=== PATIENT | male | born 1950 | race Caucasian/White ===

== ENCOUNTER 2022-03-18 10:15 | Inpatient (IN) | payer MEDICARE, OTHER ==
[~2022-03-18] VITALS: Ht 172.7 cm; Wt 81.6 kg
--- NOTE | 2022-03-18 10:51 | NUR ---
PT IS IN ROOM #2A. DR LEE EVALUATED THE PT.
[2022-03-18] MEDS ORDERED: HYDR12.55 PO (10:57)
[2022-03-18] MEDS ORDERED: ATOR80TA PO (10:57)
[2022-03-18] MEDS ORDERED: QUET25TA PO (10:57)
[2022-03-18] MEDS ORDERED: VITAMIN D PO (10:57)
[2022-03-18] MEDS ORDERED: ACET-2605 PO ×2 (10:57)
[2022-03-18] MEDS ORDERED: [UNRECOGNIZED DRUG - CODE] PO (10:57)
[2022-03-18] MEDS ORDERED: MELA5TAB PO (10:57)
[2022-03-18] MEDS ORDERED: LORA10TA7 PO (10:57)
[2022-03-18] MEDS ORDERED: POLY17PO4 PO (10:57)
[2022-03-18] MEDS ORDERED: ASPI81TA31 PO (10:57)
[2022-03-18] MEDS ORDERED: ASCO500C18 PO (10:57)
[2022-03-18 10:59] LABS: HEMATOCRIT 43.9 % (36.7-47.1); MEAN CORPUSCULAR HEMOGLOBIN 30.9 uug (23.8-33.4); PLATELET COUNT (AUTO) 361 K/uL (152-348)
[2022-03-18] MEDS ORDERED: ACET-2154 PO (11:03)
[2022-03-18] MEDS ORDERED: LISI20TA30 PO (11:03)
[2022-03-18] MEDS ORDERED: SENN-261 PO (11:03)
[2022-03-18] MEDS ORDERED: MAGN400O6 PO (11:03)
[2022-03-18] MEDS ORDERED: FLEET ENEMA PR (11:03)
[2022-03-18 11:15] LABS: ALANINE AMINOTRANSFERASE 44 U/L (16-63); ALKALINE PHOSPHATASE 136 U/L (50-136); ASPARTATE AMINOTRANSFERASE 27 U/L (15-37); BILIRUBIN,DIRECT 0.1 mg/dL (0.0-0.2); BILIRUBIN,TOTAL 0.5 mg/dL (0.2-1.0); CARBON DIOXIDE 25 mmol/L (21-32); CHLORIDE 103 mmol/L (98-107); GLUCOSE 101 mg/dL (74-106); POTASSIUM 4.1 mmol/L (3.5-5.1); TOTAL PROTEIN, SERUM 8.2 g/dL (6.4-8.2); UREA NITROGEN, BLOOD 18 mg/dL (7-18)
[2022-03-18 11:17] LABS: ACETAMINOPHEN < 2.0 ug/mL (10-30); ETHANOL < 3 MG/DL (0-0)
[2022-03-18 11:40] LABS: *BILIRUBIN,URIN NEGATIVE (NEGATIVE); *CLARITY,URINE CLEAR (CLEAR); *COLOR,URINE YELLOW (YELLOW); *KETONES,URINE NEGATIVE (NEGATIVE); *UROBILINOGEN,URINE 0.2 E.U./dl (NORMAL); LEUKOCYTE ESTERASE ,URINE NEGATIVE (NEGATIVE); NITRITE, URINE NEGATIVE (NEGATIVE); PH,URINE 5.5 (5.0-8.0); UGLUCOSE NEGATIVE (NEGATIVE)
[2022-03-18 11:44] LABS: *BLOOD, URINE TRACE (NEGATIVE)
[2022-03-18 11:53] LABS: *AMPHETAMINE, URINE NEGATIVE (NEGATIVE); *CANNABINOID, URINE NEGATIVE (NEGATIVE); *COCCAINE, URINE NEGATIVE (NEGATIVE); *OPIATE, URINE NEGATIVE (NEGATIVE); *PHENCYCLIDINE SCREEN,URINE NEGATIVE (NEGATIVE)
[2022-03-18 11:57] LABS: BACTERIA,URINE FEW /HPF (NONE SEEN); RBC,URINE 0-3 /HPF (0-3); SQUAMOUS EPITHELIAL CELL,UR FEW /HPF (NONE SEEN); WBC,URINE 0-3 /HPF (0-3)
--- NOTE | 2022-03-18 13:26 | NUR ---
PT WAS EVALUATED BY CRISIS RIBBON BLOCKMAKER YUNG DREW . PT WAS PLACED ON 51/50 HLD DANGER TO OTHERS. REPORT WAS GIVEN TO RN MHU. PT WAS TRANSFERED TO [facility] ROOM #139B.
[2022-03-18 14:00] VITALS: BP 136/79
[2022-03-18] MEDS ORDERED: ACETAMINOPHEN 325 MG TABLET PO PRN (14:00)
--- NOTE | 2022-03-18 14:46 | NUR ---
GPS ADMISSION NOTED Received a 72 yo patient from ED, patient BIB by ambulance from [facility],patient was placed on 5150 for GD. per 5150 patient BIB ambulance from [facility] due to aggressive and combative behavior.patient non compliant with his care,was aggressive and striking out at his facility. during face to face assessment patient is alert and oriented x2-3 denies any SI/HI with poor judgement and poor impulse control. Advisement and patient's right handbook given to patient. and medical MD notified.
--- NOTE | 2022-03-18 15:08 | NUR ---
Gps/Flipping Machine Operator- Moved patient to room 145-C , concerns about his safety , related to unsteady gait , left sided weakness, (Hx of Stroke) Per patient he uses wheel chair at the SNF to roam around, occ. uses front wheel walker , but with assist. Safety reviewed, bed alarm on , monitored needs. Requested to uses urinal , placed with in his reach . Had been cooperative with the staff during routine admission care.
[2022-03-18 16:00] VITALS: BP 121/74
[2022-03-18] MEDS ORDERED: ACETAMINOPHEN ES 500 MG TABLET- SA PATIENTS-PAIN ONLY PO PRN (18:45)
[2022-03-18 20:00] VITALS: BP 156/77
[2022-03-18] MEDS ORDERED: Medication Not On Formulary EA (Atorvastatin Calcium (Lipitor) 80 MG) PO SCH (21:00)
--- NOTE | 2022-03-18 21:00 | NUR ---
GPS: Received patient lying in bed. alert and oriented x3. uses w/c to move around in the unit. compliant with meds. no c/o pain or discomfort at this time. patient is calm and cooperative. assisted with adl's. continue plan of care.
[2022-03-18] MEDS: ATORVASTATIN 40 MG TABLET PO SCH (21:12)
[2022-03-18] MEDS: ZOLPIDEM 5 MG TABLET PO PRN (21:51)
--- NOTE | 2022-03-18 21:51 | NUR ---
patient c/o insomnia. ambien 5 mg po prn given.
[2022-03-18 22:00] VITALS: BP 141/77
--- NOTE | 2022-03-18 22:51 | NUR ---
patient is sleeping quietly. prn for sleep effective.
--- NOTE | 2022-03-19 06:41 | NUR ---
GPS: Remain calm and cooperative. slept 8.30 hrs through the night after given ambien 5 mg po prn. continue plan of care.
[2022-03-19] MEDS: LORAZEPAM 1 MG TABLET PO PRN ×2 (07:24→21:04)
[2022-03-19 07:31] LABS: BILIRUBIN,TOTAL 0.6 mg/dL (0.2-1.0); CREATININE 1.2 mg/dL (0.6-1.3); POTASSIUM 4.1 mmol/L (3.5-5.1); TOTAL PROTEIN, SERUM 8.1 g/dL (6.4-8.2)
[2022-03-19] MEDS: HYDROCHLOROTHIAZIDE 12.5 MG CAPSULE PO SCH (08:03)
[2022-03-19] MEDS: DOCUSATE SODIUM 100 MG CAPSULE PO SCH ×2 (08:04→16:38)
[2022-03-19] MEDS: ASPIRIN 81 MG TAB.CHEW PO SCH (08:04)
[2022-03-19] MEDS: LISINOPRIL 20 MG TABLET PO SCH (08:07)
[2022-03-19] MEDS: ASCORBIC ACID 500 MG TABLET PO SCH (08:08)
[2022-03-19] MEDS: CHOLECALCIFEROL 1,000 UNIT TABLET PO SCH (08:09)
[2022-03-19 08:55] VITALS: BP 133/81
[2022-03-19] MEDS ORDERED: VITAMIN D 5000 UNIT PO SCH (09:00)
[2022-03-19] MEDS ORDERED: MIRALAX 17 GM POWD.PACK PO SCH (09:00)
[2022-03-19] MEDS ORDERED: LORATADINE 10 MG TABLET PO SCH (09:00)
[2022-03-19] MEDS ORDERED: Medication Not On Formulary EA (Ascorbic Acid (Vitamin C) 1 CAP) PO SCH (09:00)
[2022-03-19] MEDS: QUETIAPINE FUMARATE 25 MG TABLET PO SCH ×2 (10:37→16:38)
--- NOTE | 2022-03-19 10:49 | NUR ---
Gps/Pick And Shovel Worker- Attending and participating in his group therapy, medications compliant , interacting with the staff, and roommate..Somewhat confused, [place] [facility] [place] , reality reorientation provided, denies any aggressive situation at his facility .
--- NOTE | 2022-03-19 14:29 | NUR ---
Gps/Winston Pickard -cell #) patient's sister called , wants to know progress of patient , per sister patient tends to get easily irritable and agitated , needed help to stabilized mood .Patient been cooperative , attending his group therapy, as well as medications compliant
[2022-03-19 16:20] VITALS: BP 119/62
[2022-03-19 20:00] VITALS: BP 114/78
[2022-03-19] MEDS: ATORVASTATIN 40 MG TABLET PO SCH (21:04)
--- NOTE | 2022-03-19 22:00 | NUR ---
Patient is unkept. Instructed patient not to keep his urinal on his dinner table next to his food while he's eating. Patient insisted to keep urinal on his dinner table. Room mate and this patient began to argue regarding same issue, and about this patient's poor hygiene habits. Charge nurse ultimately decided to change patients' room from 145-C to 139-B. Currently, pt is in 139-B.
--- NOTE | 2022-03-19 22:07 | NUR ---
Pt requested medication to help with anxiety r/t argument he had with previous room mate. Ativan 1mg PO given.
--- NOTE | 2022-03-20 04:41 | NUR ---
Patient requested medication for upset stomach. Maalox given 30cc PRN PO.
[2022-03-20] MEDS: MAG HYDROX/AL HYDROX/SIMETH 30 ML LIQUID UDC PO PRN ×2 (04:43→09:35)
[2022-03-20] MEDS ORDERED: DOCUSATE SODIUM 100 MG CAPSULE PO PRN (09:15)
[2022-03-20] MEDS ORDERED: MIRALAX 17 GM POWD.PACK PO PRN (09:15)
[2022-03-20] MEDS: ASPIRIN 81 MG TAB.CHEW PO SCH (09:35)
[2022-03-20] MEDS: CHOLECALCIFEROL 1,000 UNIT TABLET PO SCH (09:35)
[2022-03-20] MEDS: QUETIAPINE FUMARATE 25 MG TABLET PO SCH ×2 (09:35→17:30)
[2022-03-20] MEDS: ASCORBIC ACID 500 MG TABLET PO SCH (09:35)
[2022-03-20] MEDS: HYDROCHLOROTHIAZIDE 12.5 MG CAPSULE PO SCH (09:35)
[2022-03-20] MEDS: LISINOPRIL 20 MG TABLET PO SCH (09:36)
--- NOTE | 2022-03-20 14:40 | NUR ---
GPS: Nursing Notes: Thought Disorder: Patient is awake and responding to his name, impaired judgment, gets easily irritable when redirected, depressed mood and anxious affect, labile, unpredictable behavior at times, A/Ox2 at this time, isolative and withdrawn in his room, showered today, in and out of therapeutic groups, continue to encourage to participate in therapeutic groups, unable to formulate a viable plan for self care, continue to monitor for safety, continue with treatment plan.
[2022-03-20 16:29] VITALS: BP 101/64
[2022-03-20] MEDS: LORATADINE 10 MG TABLET PO PRN (17:30)
[2022-03-20] MEDS: ATORVASTATIN 40 MG TABLET PO SCH (20:04)
[2022-03-20] MEDS: LORAZEPAM 1 MG TABLET PO PRN (20:04)
[2022-03-20 20:36] VITALS: BP 108/66
[2022-03-20] MEDS: ZOLPIDEM 5 MG TABLET PO PRN (21:09)
--- NOTE | 2022-03-21 06:58 | NUR ---
GPS: Pt.slept for 8 hrs.last night. No aggressive behavior noted. Reminded to call for assistance prn. Fall precautions observed. Re-directed prn. Will continue to monitor.
[2022-03-21 07:30] VITALS: BP 136/82
[2022-03-21] MEDS: LORAZEPAM 1 MG TABLET PO PRN (07:58)
[2022-03-21] MEDS: QUETIAPINE FUMARATE 25 MG TABLET PO SCH ×2 (08:26→16:27)
[2022-03-21] MEDS: CHOLECALCIFEROL 1,000 UNIT TABLET PO SCH (08:26)
[2022-03-21] MEDS: ASPIRIN 81 MG TAB.CHEW PO SCH (08:26)
[2022-03-21] MEDS: ASCORBIC ACID 500 MG TABLET PO SCH (08:26)
[2022-03-21] MEDS: HYDROCHLOROTHIAZIDE 12.5 MG CAPSULE PO SCH (08:27)
[2022-03-21] MEDS: LISINOPRIL 20 MG TABLET PO SCH (08:37)
[2022-03-21] MEDS: DIVALPROEX 125 MG TABLET.DR PO SCH ×2 (09:32→20:27)
--- NOTE | 2022-03-21 09:37 | NUR ---
JAMAAL Initial Discharge Note: Pt currently resides at [facility] located at [address] [place] [address] ([phone]). JAMAAL will contact the admissions team at [facility] to discuss pt's return to their facility upon discharge. At this time, pt states he has no family or friends contact. JAMAAL will continue to work with pt and MD to ensure a safe and proper discharge plan.
--- NOTE | 2022-03-21 09:41 | NUR ---
Firearms Report: Rug [employer]ter [place] completed and submitted a [employer] firearms report for 5150 grave disability certifications. A copy of report has been placed in patient chart.
--- NOTE | 2022-03-21 09:41 | NUR ---
SW Family Contact: Per pt, no family or friends contact at this time.
--- NOTE | 2022-03-21 10:35 | NUR ---
GPS: Nursing Notes: [facility] Request: Staff give copy of 5250 to patient. Explained 5250 and informed to patient that a certification review hearing will be held within four days. Staff told patient that patient's rights advocate will call him to provide assistance and answer questions about the hearing. The court has been notified of this certification on this day via [facility] portal, continue with treatment plan.
[2022-03-21] MEDS: MAG HYDROX/AL HYDROX/SIMETH 30 ML LIQUID UDC PO PRN (12:37)
--- NOTE | 2022-03-21 14:59 | NUR ---
GPS: Nursing Notes: Thought Disorder: Patient is awake and responding to his name, poor anger management, impaired judgment, believes that he is here to have his surgery, redirected during shift, poor impulse control at times, verbal abusive toward specific peer, threatening peer, loud and pressured speech, "I am here to have surgery... When I am going to have my surgery..", unable to formulate a viable plan for self care, unkempt appearance, unpredictable behavior, continue to monitor for safety, continue with treatment plan.
[2022-03-21] MEDS: LORATADINE 10 MG TABLET PO PRN (16:26)
[2022-03-21 16:32] VITALS: BP 101/62
[2022-03-21 20:06] VITALS: BP 110/76
[2022-03-21] MEDS: ATORVASTATIN 40 MG TABLET PO SCH (20:28)
[2022-03-22] MEDS: LORAZEPAM 1 MG TABLET PO PRN (04:13)
[2022-03-22 07:30] VITALS: BP 110/75
[2022-03-22] MEDS: ASCORBIC ACID 500 MG TABLET PO SCH (08:56)
[2022-03-22] MEDS: ASPIRIN 81 MG TAB.CHEW PO SCH (08:56)
[2022-03-22] MEDS: CHOLECALCIFEROL 1,000 UNIT TABLET PO SCH (08:56)
[2022-03-22] MEDS: LISINOPRIL 20 MG TABLET PO SCH (08:57)
[2022-03-22] MEDS: HYDROCHLOROTHIAZIDE 12.5 MG CAPSULE PO SCH (08:59)
[2022-03-22] MEDS: QUETIAPINE FUMARATE 25 MG TABLET PO SCH ×2 (08:59→16:31)
[2022-03-22] MEDS: DIVALPROEX 125 MG TABLET.DR PO SCH ×2 (08:59→21:59)
[2022-03-22 16:00] VITALS: BP 124/64
[2022-03-22] MEDS: MAG HYDROX/AL HYDROX/SIMETH 30 ML LIQUID UDC PO PRN (16:31)
--- NOTE | 2022-03-22 18:10 | NUR ---
Pt complained of heartburn. Gave Maalox PRN for indigestion and heartburn relief. Pt continues to have hiccups. Pt stated it's been a condition he's had for decades.
[2022-03-22 20:13] VITALS: BP 120/58
[2022-03-22] MEDS: ATORVASTATIN 40 MG TABLET PO SCH (21:58)
[2022-03-23] MEDS: ZOLPIDEM 5 MG TABLET PO PRN (00:41)
--- NOTE | 2022-03-23 06:43 | NUR ---
Patient slept most of the night, no complain of pain, calm and cooperative with care and medication, cont to monitor.
[2022-03-23 07:30] VITALS: BP 120/68
[2022-03-23] MEDS: HYDROCHLOROTHIAZIDE 12.5 MG CAPSULE PO SCH (09:00)
[2022-03-23] MEDS: DIVALPROEX 125 MG TABLET.DR PO SCH ×2 (09:00→20:23)
[2022-03-23] MEDS: LISINOPRIL 20 MG TABLET PO SCH (09:00)
[2022-03-23] MEDS: ASPIRIN 81 MG TAB.CHEW PO SCH (09:00)
[2022-03-23] MEDS: CHOLECALCIFEROL 1,000 UNIT TABLET PO SCH (09:00)
[2022-03-23] MEDS: ASCORBIC ACID 500 MG TABLET PO SCH (09:00)
[2022-03-23] MEDS: QUETIAPINE FUMARATE 25 MG TABLET PO SCH ×3 (09:00→17:20)
--- NOTE | 2022-03-23 15:09 | NUR ---
Patient is quiet, calm, isolative, refusing all medications. Pt. states "I don't want medications anymore". Patient is A/O X 2 to person, place. Pt. is encourage to verbalize feelings. Fall and safety precautions implemented.
[2022-03-23 16:00] VITALS: BP 114/54
[2022-03-23 20:05] VITALS: BP 118/62
[2022-03-23] MEDS: ATORVASTATIN 40 MG TABLET PO SCH (20:23)
--- NOTE | 2022-03-23 21:30 | NUR ---
Received patient in his room. He is noted awake A/O x 3. patient noted isolative and withdrawn. he is labile, affect is blunted, speech is circumstantial. Pt. is able to verbalized his feelings. He stated, "I feel wired with my problem. i wish it goes away. i hate been like that". Patient denied SI/HI/VH/AH. he is able to verbally CFS. PO fluids and snacks were given. he is reassured for his safety. safety and fall precautions are in place. his V/S are stable. will continue to monitor.
[2022-03-24] MEDS: ZOLPIDEM 5 MG TABLET PO PRN (02:22)
[2022-03-24 07:30] VITALS: BP 135/59
[2022-03-24] MEDS: ASCORBIC ACID 500 MG TABLET PO SCH (09:04)
[2022-03-24] MEDS: ASPIRIN 81 MG TAB.CHEW PO SCH (09:04)
[2022-03-24] MEDS: DIVALPROEX 125 MG TABLET.DR PO SCH ×2 (09:04→20:41)
[2022-03-24] MEDS: LISINOPRIL 20 MG TABLET PO SCH (09:05)
[2022-03-24] MEDS: QUETIAPINE FUMARATE 25 MG TABLET PO SCH ×3 (09:05→17:04)
[2022-03-24] MEDS: CHOLECALCIFEROL 1,000 UNIT TABLET PO SCH (09:05)
[2022-03-24] MEDS: HYDROCHLOROTHIAZIDE 12.5 MG CAPSULE PO SCH (09:07)
--- NOTE | 2022-03-24 13:00 | NUR ---
14 days PC hearing done ,held for [place] disabled.
[2022-03-24 16:14] VITALS: BP 94/49
[2022-03-24 19:54] VITALS: BP 101/62
--- NOTE | 2022-03-24 20:30 | NUR ---
Received patient in the hallway. He is noted awake A/O x 3. patient use a wheelchair to transfer himself and move around the unit. Pt. is able to verbalized his feelings. he is noted with poor insight and judgment as to the reason for his admission to [facility]. He stated, "i am here because on my condition with my body". Patient denied SI/HI/VH/AH. he is able to verbally CFS. PO fluids and snacks were given. he is reassured for his safety. safety and fall precautions are in place. his V/S are stable. pt i no distress. he was given Claritin for allergies as per patient's requested. will continue to monitor.
[2022-03-24] MEDS: ATORVASTATIN 40 MG TABLET PO SCH (20:41)
[2022-03-24] MEDS: LORATADINE 10 MG TABLET PO PRN (20:41)
[2022-03-25] MEDS: ZOLPIDEM 5 MG TABLET PO PRN ×2 (00:56→21:02)
[2022-03-25] MEDS: MAG HYDROX/AL HYDROX/SIMETH 30 ML LIQUID UDC PO PRN (00:56)
[2022-03-25 07:39] VITALS: BP 129/75
[2022-03-25] MEDS: QUETIAPINE FUMARATE 25 MG TABLET PO SCH ×3 (08:24→16:16)
[2022-03-25] MEDS: HYDROCHLOROTHIAZIDE 12.5 MG CAPSULE PO SCH (08:24)
[2022-03-25] MEDS: ASPIRIN 81 MG TAB.CHEW PO SCH (08:24)
[2022-03-25] MEDS: ASCORBIC ACID 500 MG TABLET PO SCH (08:24)
[2022-03-25] MEDS: CHOLECALCIFEROL 1,000 UNIT TABLET PO SCH (08:24)
[2022-03-25] MEDS: LISINOPRIL 20 MG TABLET PO SCH (08:25)
[2022-03-25] MEDS: DIVALPROEX 125 MG TABLET.DR PO SCH ×2 (08:26→20:05)
[2022-03-25 16:28] VITALS: BP 101/54
[2022-03-25 19:47] VITALS: BP 114/83
[2022-03-25] MEDS: ATORVASTATIN 40 MG TABLET PO SCH (20:05)
--- NOTE | 2022-03-25 20:30 | NUR ---
Pt propels self with w/c throughout unit. Easily irritable. Compliant with medications at this time with reinforcement. No aggressive or combative behavior noted.
[2022-03-26] MEDS: MAG HYDROX/AL HYDROX/SIMETH 30 ML LIQUID UDC PO PRN (04:03)
--- NOTE | 2022-03-26 04:04 | NUR ---
Patient requested medication for upset stomach and gas. Gave Maalox 30 ml. Will continue to monitor.
[2022-03-26 07:37] VITALS: BP 97/55
[2022-03-26] MEDS: ASPIRIN 81 MG TAB.CHEW PO SCH (08:34)
[2022-03-26] MEDS: DIVALPROEX 125 MG TABLET.DR PO SCH ×2 (08:34→20:39)
[2022-03-26] MEDS: CHOLECALCIFEROL 1,000 UNIT TABLET PO SCH (08:34)
[2022-03-26] MEDS: ASCORBIC ACID 500 MG TABLET PO SCH (08:34)
[2022-03-26] MEDS: QUETIAPINE FUMARATE 25 MG TABLET PO SCH ×3 (08:34→17:12)
[2022-03-26] MEDS: HYDROCHLOROTHIAZIDE 12.5 MG CAPSULE PO SCH (08:35)
[2022-03-26] MEDS: LISINOPRIL 20 MG TABLET PO SCH (08:35)
--- NOTE | 2022-03-26 15:29 | NUR ---
Received Patient is awake and responding to his name, poor anger management, impaired judgment, believes that he is here to have his surgery, redirected during shift, poor impulse control at times, verbal abusive toward specific peer, patient compliant with all po medication, able to wheel self in hallway ,will continue monitoring.
[2022-03-26 15:37] VITALS: BP 124/66
[2022-03-26 19:51] VITALS: BP 116/60
--- NOTE | 2022-03-26 20:30 | NUR ---
Received patient in the hallway. He is noted A/O x 2. He is calm and pleasant upon approached. He denied SI/HI/VH/AH. he is able to verbally CFS. Patient needs assistance with ADLs. he is able to transfer himself via wheelchair. His V/S are stable. he is in no distress. he was given PO Fluids and snacks. He is reassured for his safety. safety and fall precautions are in place. will continue to monitor.
[2022-03-26] MEDS: ATORVASTATIN 40 MG TABLET PO SCH (20:39)
[2022-03-27] MEDS: CHOLECALCIFEROL 1,000 UNIT TABLET PO SCH (08:22)
[2022-03-27] MEDS: LISINOPRIL 20 MG TABLET PO SCH (08:23)
[2022-03-27] MEDS: QUETIAPINE FUMARATE 25 MG TABLET PO SCH ×3 (08:23→17:25)
[2022-03-27] MEDS: ASCORBIC ACID 500 MG TABLET PO SCH (08:23)
[2022-03-27] MEDS: DIVALPROEX 250 MG TABLET.DR PO SCH ×2 (08:24→20:46)
[2022-03-27] MEDS: HYDROCHLOROTHIAZIDE 12.5 MG CAPSULE PO SCH (08:24)
[2022-03-27] MEDS: ASPIRIN 81 MG TAB.CHEW PO SCH (08:25)
[2022-03-27 08:26] VITALS: BP 116/66
[2022-03-27] MEDS ORDERED: DIVALPROEX 125 MG TABLET.DR PO SCH (09:00)
--- NOTE | 2022-03-27 13:46 | NUR ---
Patient is awake and responding to his name, poor anger management, impaired judgment, believes that he is here to have his surgery, redirected during shift, poor impulse control at times, verbal abusive toward to staffs easily get irritable and anger, patient compliant with all po medication, able to wheel self in hallway ,will continue monitoring.
[2022-03-27] MEDS ORDERED: LORAZEPAM 2 MG/1 ML VIAL IM ONE (15:00)
[2022-03-27] MEDS ORDERED: OLANZAPINE 10 MG VIAL IM ONE (15:00)
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
--- NOTE | 2022-03-27 15:45 | NUR ---
JAMAAL Family Contact: SW spoke with pt's sister, Melly ([phone]) and discussed the pt's discharge plan to return to [facility]. Melly is aware and agreeable. Melly verbalized that pt has a hx of being homeless for 15 years prior to [facility] and a stroke 4 years ago. Melly stated there is no DPOA or conservator.
[2022-03-27 16:05] VITALS: BP 118/64
[2022-03-27 20:17] VITALS: BP 121/82
[2022-03-27] MEDS: ATORVASTATIN 40 MG TABLET PO SCH (20:46)
--- NOTE | 2022-03-28 05:24 | NUR ---
Pt asked for Tylenol for possible pyrexia. Oral temp 98.0 degrees. Gave Tylenol 650mg. Will continue to monitor.
[2022-03-28 07:33] VITALS: BP 102/66
[2022-03-28] MEDS: DIVALPROEX 250 MG TABLET.DR PO SCH ×2 (08:50→20:44)
[2022-03-28] MEDS: CHOLECALCIFEROL 1,000 UNIT TABLET PO SCH (08:50)
[2022-03-28] MEDS: QUETIAPINE FUMARATE 25 MG TABLET PO SCH ×3 (08:50→17:35)
[2022-03-28] MEDS: ASPIRIN 81 MG TAB.CHEW PO SCH (08:50)
[2022-03-28] MEDS: HYDROCHLOROTHIAZIDE 12.5 MG CAPSULE PO SCH (08:51)
[2022-03-28] MEDS: ASCORBIC ACID 500 MG TABLET PO SCH (08:51)
[2022-03-28] MEDS: LISINOPRIL 20 MG TABLET PO SCH (08:52)
--- NOTE | 2022-03-28 14:34 | NUR ---
Received patient awake in his room. A/O X 2 to person, place. Pt. is disheveled, poor hygiene, isolative, likes to be alone, does not interact with other peers. Patient is disorganized and confused "I heard I'm leaving tomorrow, ask my doctor!" Patient is compliant with medications. Pt. is encourage to vent feelings. Fall and safety precautions implemented.
[2022-03-28 16:00] VITALS: BP 112/67
[2022-03-28 19:55] VITALS: BP 116/62
--- NOTE | 2022-03-28 20:30 | NUR ---
RECEIVED PATIENT IN HIS ROOM SITTING IN A WHEELCHAIR. PATIENT IS A/O X 2. NOTED WITHDRAWN WITH POOR INTERACTION WITH OTHER CLIENTS. HOWEVER, HE IS ABLE TO VERBALIZED HIS FEELINGS. HE CONTINUE THINKING THAT HE IS HERE TO GET TREATMENT FOR HIS GROIN HERNIA AND GENITAL SWELLING. HE DENIED SI/HI//AH. HE IS ABLE TO VERBALLY CFS. HIS V/S ARE STABLE PATIENT DENIED PAIN AT THIS TIME. HE WAS GIVEN PO FLUIDS AND SNACKS. HE IS REASSURED FOR HIS SAFETY. SAFETY AND FALL PRECAUTIONS ARE IN PLACE. WILL CONTINUE TO MONITOR.
[2022-03-28] MEDS: ATORVASTATIN 40 MG TABLET PO SCH (20:44)
[2022-03-28] MEDS: ZOLPIDEM 5 MG TABLET PO PRN (22:29)
[2022-03-29] MEDS: LORATADINE 10 MG TABLET PO PRN (06:45)
[2022-03-29] MEDS: REMEDY ESSENTIAL ZINC PASTE 113 GM TOP SCH ×2 (06:59→20:40)
[2022-03-29 07:30] VITALS: BP 128/68
[2022-03-29] MEDS: ASPIRIN 81 MG TAB.CHEW PO SCH (09:12)
[2022-03-29] MEDS: QUETIAPINE FUMARATE 25 MG TABLET PO SCH ×3 (09:12→17:10)
[2022-03-29] MEDS: CHOLECALCIFEROL 1,000 UNIT TABLET PO SCH (09:12)
[2022-03-29] MEDS: DIVALPROEX 250 MG TABLET.DR PO SCH ×2 (09:12→20:40)
[2022-03-29] MEDS: ASCORBIC ACID 500 MG TABLET PO SCH (09:12)
[2022-03-29] MEDS: HYDROCHLOROTHIAZIDE 12.5 MG CAPSULE PO SCH (09:13)
[2022-03-29] MEDS: LISINOPRIL 20 MG TABLET PO SCH (09:13)
--- NOTE | 2022-03-29 11:32 | NUR ---
JAMAAL Discharge Update: JAMAAL spoke with Emma from [facility] ([phone]) and discussed pt's return to their facility this Sunday. Emma confirmed his acceptance back.
[2022-03-29 16:00] VITALS: BP 95/58
--- NOTE | 2022-03-29 17:46 | NUR ---
Patient was received in his room. A/O x 2 to person, place. Pt. is cooperative, confinding in his room most of the day, compliant with medications. Reassurance given. Fall and safety precautions implemented.
[2022-03-29 19:48] VITALS: BP 116/55
--- NOTE | 2022-03-29 20:30 | NUR ---
Received patient in the hallway sitting in his wheelchair. he was A/O x 2 to 3. he is noted calm and pleasant upon approached. no aggressive or combative bx noted at this time. he is less isolative less withdrawn. he is able to verbalized his feelings. he is fixed on been d/c form the unit. V/S are stable. PO fluids and snacks were given. patient is reassured for his safety. safety and fall precautions are in place. will continue to monitor.
[2022-03-29] MEDS: ATORVASTATIN 40 MG TABLET PO SCH (20:40)
[2022-03-29] MEDS: MAG HYDROX/AL HYDROX/SIMETH 30 ML LIQUID UDC PO PRN (20:43)
[2022-03-30] MEDS: LORAZEPAM 1 MG TABLET PO PRN ×2 (04:04→20:12)
--- NOTE | 2022-03-30 06:19 | NUR ---
Patient slept for approx. 4 hrs through the night. She was complaint with medication regiment diet and care. he needs assistance with ADLs. will endorse to incoming shift.
[2022-03-30 07:30] VITALS: BP 103/67
[2022-03-30] MEDS: ASCORBIC ACID 500 MG TABLET PO SCH (08:45)
[2022-03-30] MEDS: QUETIAPINE FUMARATE 25 MG TABLET PO SCH ×3 (08:45→17:42)
[2022-03-30] MEDS: DIVALPROEX 250 MG TABLET.DR PO SCH ×2 (08:45→20:12)
[2022-03-30] MEDS: ASPIRIN 81 MG TAB.CHEW PO SCH (08:45)
[2022-03-30] MEDS: HYDROCHLOROTHIAZIDE 12.5 MG CAPSULE PO SCH (08:45)
[2022-03-30] MEDS: CHOLECALCIFEROL 1,000 UNIT TABLET PO SCH (08:45)
[2022-03-30] MEDS: LISINOPRIL 10 MG TABLET PO SCH (08:46)
[2022-03-30] MEDS: REMEDY ESSENTIAL ZINC PASTE 113 GM TOP SCH ×2 (08:48→20:13)
--- NOTE | 2022-03-30 15:21 | NUR ---
Patient is isolative, confinding, withdrawn, mostly quiet, just respond to others but does not initiate any conversations, refuses shower and does not want to be cleaned. Patient is depressed and like to be left alone. Patient is encourage to vent feelings and emotions. Fall and safety precautions implemented.
--- NOTE | 2022-03-30 15:49 | NUR ---
JAMAAL Family Contact: SW contacted pt's sister, Melly ([phone]) and left a voicemail for pt's discharge plan to return to [facility] on 03/31/22 via ambulance transportation at 11AM.
[2022-03-30 16:00] VITALS: BP 96/60
[2022-03-30 20:16] VITALS: BP 106/66
[2022-03-30] MEDS ORDERED: ATORVASTATIN 20 MG TABLET PO SCH (21:00)
[2022-03-30] MEDS: MAG HYDROX/AL HYDROX/SIMETH 30 ML LIQUID UDC PO PRN (22:35)
[2022-03-31] MEDS: LORAZEPAM 1 MG TABLET PO PRN (03:24)
[2022-03-31 07:30] VITALS: BP 127/81
[2022-03-31] MEDS: ASPIRIN 81 MG TAB.CHEW PO SCH (08:35)
[2022-03-31] MEDS: HYDROCHLOROTHIAZIDE 12.5 MG CAPSULE PO SCH (08:35)
[2022-03-31] MEDS: DIVALPROEX 250 MG TABLET.DR PO SCH (08:36)
[2022-03-31] MEDS: CHOLECALCIFEROL 1,000 UNIT TABLET PO SCH (08:36)
[2022-03-31] MEDS: ASCORBIC ACID 500 MG TABLET PO SCH (08:36)
[2022-03-31] MEDS: QUETIAPINE FUMARATE 25 MG TABLET PO SCH (08:36)
[2022-03-31 08:37] VITALS: BP 127/81
[2022-03-31] MEDS: LISINOPRIL 10 MG TABLET PO SCH (08:37)
[2022-03-31] MEDS: REMEDY ESSENTIAL ZINC PASTE 113 GM TOP SCH (09:15)
--- NOTE | 2022-03-31 09:39 | NUR ---
JAMAAL Discharge Note: Pt will be discharged to [facility] ([phone]) located at [address] [place] [address] via ambulance transportation at 11AM. JAMAAL spoke with admin coordinator, Emma at the facility who states they are ready to accept the patient today. Pt is aware and agreeable with discharge plan. JAMAAL contacted pts sister, Melly ([phone]) and left a voicemail informing Melly of pts returning discharge details on 03/31/22. Pt is alert and oriented x2, is unable to plan for self-care at this time. However, pt is willing to accept care at SNF. Pt denies any suicidal or homicidal ideation. Pt will follow-up at the facility with his following psychiatrist, Dr. Yan and Tie Carrier, Dr. Boo. Pt presents with calm mood and congruent affect. PHARMACY: [facility] ([phone]) [address], [place] [address].
--- NOTE | 2022-03-31 11:28 | NUR ---
Received orders to discharge this patient to [facility] ([phone]) located at [address] [place] [address] via ambulance transportation at 11AM. Patient was agreeable with discharge plans and signed discharge documents. Pt. denies SI/HI AH/VH, SOB, pain or any discomfort. Patient belongings and valuables were returned to patient. Patient is A/O X 2 to person, place. Pt. is cooperative with nursing care and compliant with medications. Emotional support provided. Fall and safety precautions implemented.
== END 2022-03-31 11:30 | DRG 885 ==
LOC: ER 10:22 → GPS 13:27
PROVIDERS: ADMIT Nurse Practitioner Psychiatric/Mental Health; ATTEND Internal Medicine
DX: F25.9 Schizoaffective disorder, unspecified (principal); I69.351 Hemiplegia and hemiparesis following cerebral infarction affecting right dominant side; D68.59 Other primary thrombophilia; F03.94 Unspecified dementia, unspecified severity, with anxiety; Z74.09 Other reduced mobility; E66.9 Obesity, unspecified; E78.5 Hyperlipidemia, unspecified; Z87.891 Personal history of nicotine dependence; Z20.822 Contact with and (suspected) exposure to COVID-19; I10 Essential (primary) hypertension; F03.90 Unspecified dementia, unspecified severity, without behavioral disturbance, psychotic disturbance, mood disturbance, and anxiety; Z68.27 Body mass index [BMI] 27.0-27.9, adult; K40.90 Unilateral inguinal hernia, without obstruction or gangrene, not specified as recurrent; Z79.82 Long term (current) use of aspirin; Z79.899 Other long term (current) drug therapy; I69.391 Dysphagia following cerebral infarction; I69.328 Other speech and language deficits following cerebral infarction
CPT/HCPCS: 36415; 80164; 85025; 93005; A4663; G0480; J2060; J2358; J3490